=== PATIENT | female | born 1990 | race American Indian/Alaskan Native ===

== ENCOUNTER 2019-04-29 12:01 | Outpatient (CLI) | payer MEDICAID ==
[2019-04-29] MEDS ORDERED: ZOFRAN IV ONE (12:07)
[2019-04-29] MEDS ORDERED: LACTATED RINGERS 1,000 ML IV ONE (12:07)
[2019-04-29 12:57] LABS: Bilirubin,Urine NEG (Negative); Blood,Urine NEG (Negative); Color,Urine Yellow (Yellow); Mucus,Urine FEW /HPF; Protein,Urine <15 mg/dL mg/dL (Negative)
[2019-04-29 13:46] LABS: Hematocrit 36.5 % (30.3-42.9); Hemoglobin 12.2 gm/dl (10.1-14.3); Mean Corpuscular HGB Conc 33 % (30-34); Mean Corpuscular Volume 90 fl (79-97); Platelet Count 335 K/mm3 (140-440); Red Blood Count 4.06 M/mm3 (3.65-5.03); Red Cell Distribution Width 13.9 % (13.2-15.2)
[2019-04-29] MEDS ORDERED: LACTATED RINGERS 1,000 ML IV SCH (14:00)
[2019-04-29] MEDS ORDERED: TYLENOL PO ONE (15:38)
[2019-04-29 16:06] VITALS: BP 109/57
--- NOTE | 2019-04-29 18:11 | Ultrasound Report ---
PROCEDURE: US ABDOMEN LIMITED TECHNIQUE: Real-time sonography was performed of the right upper quadrant with image documentation. HISTORY: h/o gallbladder disease; N V COMPARISONS: None . FINDINGS: Examination of the gallbladder demonstrates multiple echogenic shadowing gallstones filling a contrac blayne gallbladder there is no evidence for distention, wall thickening, or pericholecystic fluid. No so nographic Colon's sign is elicited. Common bile duct is normal in diameter measuring 4.4 mm. The liver is normal and homogeneous in echogenicity without focal abnormality or intrahepatic biliary dilatation. The pancreas is normal in thickness without focal abnormality or pancreatic duct dilatation. The dist al pancreatic tail is not visualized due to bowel gas. The right kidney is normal in size without calculi or hydronephrosis. The right measures 10.6 cm in craniocaudal length. IMPRESSION: Contracted gallbladder filled with gallstones This document is electronically signed by Fanta Graham MD., April 29 2019 06:09:31 PM ET
--- NOTE | 2019-04-29 18:14 | Ultrasound Report ---
PROCEDURE: US OB LIMITED TECHNIQUE: Real-time limited sonographic examination was performed for evaluation of each fetus with image documentation (1 or more fetuses). HISTORY: contractions; and h/o gallbladder disease with LMP 08/17/2018 and estimated age 36 we eks 3 days with EDC 05/24/2019 COMPARISONS: None FINDINGS: MATERNAL Uterus: Within normal limits Internal Os: closed FETUS IUP: Single living intrauterine Position: Cephalic Placental position: Anterior, without previa. Amniotic fluid volume: Normal, VIJAY 11.5 cm Heart rate and rhythm: 155 BPM, Regular IMPRESSION: 1. Single living intrauterine gestation at approximately 36 weeks 3 days 2. EDC by US 05/24/2019 This document is electronically signed by Fanta Graham MD., April 29 2019 06:12:27 PM ET
--- NOTE | 2019-04-29 18:14 | Ultrasound Report ---
PROCEDURE: US OB BPP WO NON-STRESS TECHNIQUE: Sonographic evaluation for breathing, movement, tone, and amniotic flui d volume was performed. HISTORY: contractions; and h/o gallbladder disease COMPARISONS: None . FINDINGS: FETUS Amniotic fluid volume Normal-score 2. At least one vertical pocket >2 cm or more in vertical axis . breathing: Normal-score 2 . movement: Normal-score 2 . tone: Normal-score 2 . Score: 8 of 8 . IMPRESSION: Normal biophysical profile . This document is electronically signed by Fanta Graham MD., April 29 2019 06:12:54 PM ET
== END 2019-04-29 17:40 | disposition home or self-care (01) ==
LOC: TRG 12:01
PROVIDERS: ATTEND Obstetrics & Gynecology
DX: O21.2 Late vomiting of pregnancy (principal); O26.893 Other specified pregnancy related conditions, third trimester; R42 Dizziness and giddiness; O62.9 Abnormality of forces of labor, unspecified; O99.613 Diseases of the digestive system complicating pregnancy, third trimester; K80.20 Calculus of gallbladder without cholecystitis without obstruction; Z3A.36 36 weeks gestation of pregnancy; Z87.891 Personal history of nicotine dependence
CPT/HCPCS: 36415; 59025; 76705; 76815; 76819; 81001; 82150; 83690; 85027; 96361; 96374; J2405; J7120; 96360

== ENCOUNTER 2019-05-17 08:34 | Inpatient (IN) | payer MEDICAID, OTHER ==
[2019-05-17] MEDS ORDERED: STADOL IV PRN (11:29)
[2019-05-17] MEDS ORDERED: BRETHINE SUB-Q PRN (11:29)
[2019-05-17] MEDS ORDERED: MINERAL OIL PO PRN (11:29)
[2019-05-17] MEDS ORDERED: NARCAN 0.4 MG/1 ML IV PRN (11:29)
[2019-05-17] MEDS ORDERED: ZOFRAN IV PRN (11:29)
[2019-05-17] MEDS ORDERED: CERVIDIL VG ONE (11:29)
[2019-05-17] MEDS ORDERED: BRETHINE IVP PRN (11:29)
[2019-05-17] MEDS ORDERED: SUBLIMAZE IV PRN (11:29)
[2019-05-17] MEDS ORDERED: PHENERGAN PO PRN (11:29)
[2019-05-17] MEDS ORDERED: XYLOCAINE 2% INFILTRATI ONE (11:29)
--- NOTE | 2019-05-17 11:48 | History and Physical Report ---
History of Present Illness Date of examination: 05/17/19 Date of admission: 05/17/19 08:34 Chief complaint: IOL for obesity History of present illness: This is a 28 yo EDC 05/24/19 at 39 weeks here for IOL for obesity recommneded by CLAUDINE. She is patient of [facility] [facility]. She has a hx of goiter , hypothyroidism seen by endocrinology with normal US and TSH. She has a hx of gallstones and scheduled PP cholecytectomy, morbid obesity Past History Past Medical History: no pertinent history, other (thyroid ) Past Surgical History: other (tonsillectomy) Family/Genetic History: heart disease Social history: single. denies: smoking, alcohol abuse, prescription drug abuse, IV drug use - Obstetrical History Expected Date of Delivery: 05/24/19 Actual Gestation: 39 Week(s) 0 Day(s) : 5 Para: 3 Hx # Term Pregnancies: 0 Number of Pregnancies: 0 Spontaneous Abortions: 0 Induced : 0 Number of Living Children: 3 Medications and Allergies Allergies Allergy/AdvReac Type Severity Reaction Status Date / Time No Known Allergies Allergy Verified 04/29/19 12:04 Home Medications Medication Instructions Recorded Confirmed Last Taken Type Vit-Fe Fumar-FA [ 1 tab PO QDAY 04/29/19 04/29/19 04/28/19 09:00 History Vitamin] 1 Active Meds: Active Medications Butorphanol Tartrate (Stadol) 2 mg IV Q2H PRN PRN Reason: Pain , Severe (7-10) Ephedrine Sulfate (Ephedrine Sulfate) 10 mg IV Q2M PRN PRN Reason: Hypotension Fentanyl (Sublimaze) 100 mcg IV Q2H PRN PRN Reason: Labor Pain Oxytocin/Sodium Chloride (Pitocin/Ns 20 Unit/1000ml Drip) 20 units in 1,000 mls @ 125 mls/hr IV DIRECT JOSEPH Oxytocin/Sodium Chloride (Pitocin/Ns 30 Unit/500ml) 30 units in 500 mls @ 1 mls/hr IV TITR JOSEPH; Protocol Lactated Ringer's (Lactated Ringers) 1,000 mls @ 125 mls/hr IV DIRECT JOSEPH Mineral Oil (Mineral Oil) 30 ml PO QHS PRN PRN Reason: Constipation Naloxone HCl (Narcan 0.4 Mg/1 Ml) 0.1 mg IV Q2MIN PRN PRN Reason: Res Rate </= 8 or 02 SAT < 92% Ondansetron HCl (Zofran) 4 mg IV Q8H PRN PRN Reason: Nausea And Vomiting Promethazine HCl (Phenergan) 25 mg PO Q6H PRN PRN Reason: Nausea And Vomiting Terbutaline Sulfate (Brethine) 0.25 mg SUB-Q ONCE PRN PRN Reason: Hyperstimulation/Hypertonicity Terbutaline Sulfate (Brethine) 0.25 mg IVP ONCE PRN PRN Reason: Hyperstimulation/Hypertonicity Review of Systems All systems: negative - Vital Signs Vital signs: Vital Signs Pulse BP 95 H 133/62 05/17/19 09:43 05/17/19 09:43 Temp Pulse Resp BP Pulse Ox 97.6 F 95 H 16 133/62 05/17/19 11:04 05/17/19 11:04 05/17/19 11:04 05/17/19 11:04 - Physical Exam Breasts: Positive: normal Abdomen: Positive: normal appearance, soft, normal bowel sounds. Negative: distention, tenderness, guarding Genitourinary (Female): Positive: normal external genitalia, normal perenium Vagina: Positive: normal moisture Uterus: Positive: normal size Extremities: Positive: normal Deep Tendon Reflex Grade: Normal +2 - Obstetrical FHR: category 1 Cervical Dilatation: 1 Cervical Effacement Percentage: 50 station: -4 Results All other labs normal. Assessment and Plan A/P IOL for obeisty at 39 weeks IUP 39 weeks GBS negative expect vaginal delivery
[2019-05-17] MEDS ORDERED: PITOCin/NS 20 UNIT/1000ML DRIP 20 UNITS/1,000 ML BAG IV SCH (12:00)
[2019-05-17] MEDS ORDERED: PITOCin/NS 30 UNIT/500ML 30 UNITS/500 ML BAG IV SCH (12:00)
[2019-05-17 12:57] LABS: Hemoglobin 11.4 gm/dl (10.1-14.3); Mean Corpuscular HGB Conc 34 % (30-34); Mean Corpuscular Volume 90 fl (79-97); Platelet Count 359 K/mm3 (140-440)
[2019-05-17] MEDS: LACTATED RINGERS 1,000 ML IV SCH (16:11)
[2019-05-18] MEDS: LACTATED RINGERS 1,000 ML IV SCH (00:09)
[2019-05-18] MEDS ORDERED: ZOFRAN IV PRN (03:08)
[2019-05-18] MEDS ORDERED: PERCOCET 5/325 PO PRN (03:08)
[2019-05-18] MEDS ORDERED: BENADRYL PO PRN (03:08)
[2019-05-18] MEDS ORDERED: LANSINOH TP PRN (03:08)
[2019-05-18] MEDS ORDERED: DULCOLAX PR PRN (03:08)
[2019-05-18] MEDS ORDERED: TUCKS PAD TP PRN (03:08)
[2019-05-18] MEDS ORDERED: PHENERGAN PO PRN (03:08)
[2019-05-18] MEDS ORDERED: TYLENOL PO PRN (03:08)
[2019-05-18] MEDS ORDERED: PHENERGAN PR PRN (03:08)
[2019-05-18] MEDS ORDERED: MILK OF MAGNESIA PO PRN (03:08)
[2019-05-18] MEDS ORDERED: TORADOL IV PRN (03:08)
--- NOTE | 2019-05-18 03:18 | Procedure Note ---
OB Delivery Note - Delivery Date of Delivery: 05/18/19 Surgeon: KARTHIK RUVALCABA Estimated blood loss: 300cc - Vaginal Delivery presentation: vertex Delivery position: OA Delivery induction: cervidil Delivery monitor: external FHT, external uterine Route of delivery: Delivery placenta: spontaneous Delivery cord: 3 umbilical vessels Episiotomy: none Delivery laceration: none Anesthesia: none Delivery comments: Patient was noted c/c /+2 and commenced to pushing a viable male at 0257 . Pediatrics called and attended delivery for meconium. Apgars 8 and 9. Weight of the baby 7 pounds 2.5 oz Placenta delivered 0306 intact with three vessel cord. No lacerations noted. EBL 200 cc. Patient tolerated procedure well. - A at 1 minute: 8 at 5 minutes: 9 Gender: Male (7 pounds 2.5 oz)
[2019-05-18] MEDS ORDERED: PITOCin/NS 20 UNIT/1000ML DRIP 20 UNITS/1,000 ML BAG IV SCH (04:00)
[2019-05-18] MEDS ORDERED: SODIUM CHLORIDE FLUSH SYRINGE 10 ML IV PRN (04:00)
[2019-05-18] MEDS: IBUPROFEN PO SCH ×3 (04:16→17:57)
[2019-05-18] MEDS: NORCO 5/325 PO PRN ×2 (05:55→17:57)
[2019-05-18] MEDS: COLACE PO SCH (11:32)
[2019-05-18] MEDS: PRENATAL VITAMIN PO SCH (11:32)
[2019-05-18 15:53] LABS: Hematocrit 33.8 % (30.3-42.9); Hemoglobin 11.3 gm/dl (10.1-14.3)
[2019-05-19] MEDS: NORCO 5/325 PO PRN (00:23)
[2019-05-19] MEDS: IBUPROFEN PO SCH ×6 (00:23→18:30)
[2019-05-19] MEDS ORDERED: M-M-R II VACCINE SUB-Q ONE (03:08)
[2019-05-19] MEDS ORDERED: BOOSTRIX IM ONE (06:00)
--- NOTE | 2019-05-19 08:30 | Progress Note ---
Assessment and Plan A/P PPD1 s/p , breast feeding well. Vital signs are stable, no anemia. Ok for discharge to home tomorrow. Follow up in 2 weeks for 's circ and pt's surgical consult. Pt will follow up with GI specialist Subjective - Subjective Date of service: 05/19/19 Principal diagnosis: Interval history: Pt is a PPD1 s/p of viable male infant at term. Her EBL was 200mL, and she did not sustain a laceration. She has a history of cholecystitis and desires a bilateral salpingectomy . Patient reports: appetite normal, voiding normally, pain well controlled, ambulating normally : doing well, nursing well Objective - Vital Signs Latest vital signs: Vital Signs Temp Pulse Resp BP Pulse Ox 05/19/19 00:54 97.9 F 73 20 115/66 97 05/18/19 16:56 98.4 F 77 20 114/61 05/18/19 08:50 97.7 F 68 20 109/65 Intake and Output 05/18/19 05/19/19 05/19/19 23:59 07:59 15:59 Intake Total 360 480 Output Total 900 Balance -540 480 Intake: Oral 360 Intake, Free Water 480 Output: Urine 900 Void 900 Other: Total, Intake Amount 360 Total, Output Amount 900 # Voids Void 2 - Exam Breasts: Present: normal Cardiovascular: Present: Regular rate, Normal S1, Normal S2, No murmurs Lungs: Present: Clear to auscultation, Normal air movement Abdomen: Present: normal appearance, soft Uterus: Present: normal, firm, fundal height at umbilicus Extremities: Present: normal
--- NOTE | 2019-05-19 08:32 | Discharge Summary ---
Providers - Providers Date of Admission: 05/17/19 08:34 Date of discharge: 05/20/19 Attending physician: KARTHIK RUVALCABA MD Primary care physician: KARTHIK RUVALCABA MD Hospitalization Reason for admission: induction of labor Delivery: Episiotomy: none Laceration: none Other procedures: none complications: none Discharge diagnosis: IUP at term delivered baby: male Condition at discharge: Good Disposition: DC-01 TO HOME OR SELFCARE Plan - Discharge Medications Prescriptions: Ferrous Sulfate [Feosol 325 MG tab] 325 mg PO BID #30 tablet Ibuprofen [Motrin] 600 mg PO Q8H PRN #30 tablet PRN Reason: Pain oxyCODONE /ACETAMINOPHEN [Percocet 5/325] 1 tab PO Q6HR PRN #30 tablet PRN Reason: Pain - Provider Discharge Summary Activity: routine, no sex for 6 weeks, no heavy lifting 4 weeks, no strenuous exercise Diet: routine Instructions: routine Additional instructions: [] Smoking cessation referral if applicable(refer to patient education folder for contact #) [] Refer to [facility]'s [facility] Booklet Call your doctor immediately for: * Fever > 100.5 * Heavy vaginal bleeding ( >1 pad per hour) * Severe persistent headache * Shortness of breath * Reddened, hot, painful area to leg or breast * Drainage or odor from incision. * Keep incision clean and dry at all times and follow doctor's instructions regarding bathing/showering - Follow up plan Follow up: KARTHIK RUVALCABA MD [Primary Care Provider] - 10 Days (Please call to schedule appointment)
[2019-05-19] MEDS: PRENATAL VITAMIN PO SCH (09:23)
[2019-05-19] MEDS: COLACE PO SCH ×2 (09:24→21:27)
[2019-05-20] MEDS: IBUPROFEN PO SCH (06:03)
[2019-05-20] MEDS: NORCO 5/325 PO PRN (08:22)
[2019-05-20] MEDS: PRENATAL VITAMIN PO SCH (09:46)
[2019-05-20] MEDS: COLACE PO SCH (09:49)
[2019-05-20 10:10] VITALS: BP 100/64
== END 2019-05-20 12:00 | disposition home or self-care (01) | DRG 807 ==
LOC: LD 08:34 → OB 05-18 05:06
PROVIDERS: ADMIT Obstetrics & Gynecology; ATTEND Obstetrics & Gynecology
PROC: 10E0XZZ Delivery of Products of Conception, External Approach (ICD-10-PCS; principal; 2019-05-18)
PROC: 3E0P7VZ Introduction of Hormone into Female Reproductive, Via Natural or Artificial Opening (ICD-10-PCS; 2019-05-18)
PROC: 3E0234Z Introduction of Serum, Toxoid and Vaccine into Muscle, Percutaneous Approach (ICD-10-PCS; 2019-05-19)
DX: O99.284 Endocrine, nutritional and metabolic diseases complicating childbirth (principal); Z37.0 Single live birth; O99.214 Obesity complicating childbirth; E66.01 Morbid (severe) obesity due to excess calories; E03.9 Hypothyroidism, unspecified; Z3A.39 39 weeks gestation of pregnancy; Z23 Encounter for immunization
CPT/HCPCS: 36415; 59200; 85014; 85018; 85027; 86592; 86850; 86900; 86901; G0378; J0595; J2405; J2590; J3010; J7120

== ENCOUNTER 2020-07-15 20:08 | Outpatient (CLI) | payer MEDICAID ==
[2020-07-15 20:23] VITALS: BP 121/86
[2020-07-15] MEDS ORDERED: MORPHINE 4 MG/1 ML INJ IV ONE (20:42)
[2020-07-15] MEDS ORDERED: LACTATED RINGERS 1,000 ML IV ONE (20:42)
[2020-07-15] MEDS ORDERED: BICITRA ORAL LIQD 30ML PO ONE (20:42)
[2020-07-15] MEDS ORDERED: METOCLOPRAMIDE 10 MG/2 ML INJ IV ONE (20:42)
[2020-07-15] MEDS ORDERED: PROMETHAZINE 25 MG TAB PO ONE (20:43)
[2020-07-15 21:04] LABS: Basophils % (Auto) 0.4 % (0.0-1.8); Eosinophils # (Auto) 0.1 K/mm3 (0.0-0.4); Eosinophils % (Auto) 1.4 % (0.0-4.3); Hemoglobin 11.7 gm/dl (10.1-14.3); Lymphocytes # (Auto) 2.7 K/mm3 (1.2-5.4); Lymphocytes % (Auto) 28.8 % (13.4-35.0); Mean Corpuscular HGB Conc 35 % (30-34); Mean Corpuscular Volume 89 fl (79-97); Monocytes # (Auto) 0.6 K/mm3 (0.0-0.8); Platelet Count 374 K/mm3 (140-440); Red Blood Count 3.83 M/mm3 (3.65-5.03); Red Cell Distribution Width 14.3 % (13.2-15.2)
[2020-07-15 21:30] LABS: Alanine Aminotransferase 21 units/L (7-56); Albumin 3.3 g/dL (3.9-5); Blood Urea Nitrogen 5 mg/dL (7-17); Calcium 9.1 mg/dL (8.4-10.2); Hemolysis Index 60
[2020-07-15 21:40] LABS: BUN/Creatinine Ratio 10
== END 2020-07-15 21:45 | disposition left against medical advice (07) ==
LOC: TRG 20:08 → APU 20:16 → TRG 21:45
PROVIDERS: ATTEND Obstetrics & Gynecology
DX: O26.892 Other specified pregnancy related conditions, second trimester (principal); R10.11 Right upper quadrant pain; K82.9 Disease of gallbladder, unspecified; O13.2 Gestational [pregnancy-induced] hypertension without significant proteinuria, second trimester; Z3A.20 20 weeks gestation of pregnancy
CPT/HCPCS: 36415; 59025; 80053; 85025; 96361; 96374; J2765; J7120; Q0169; 96360; J2270

== ENCOUNTER 2020-07-17 21:23 | Emergency (ER) | payer MEDICAID ==
[2020-07-18 15:32] VITALS: BP 115/66
== END 2020-07-18 00:40 | disposition left against medical advice (07) ==
LOC: TRG 21:23 → ED 21:23 → APU 21:24 → TRG 21:24 → EDSTATUS 22:26 → ED 07-18 00:40
DX: R10.9 Unspecified abdominal pain (principal); Z53.21 Procedure and treatment not carried out due to patient leaving prior to being seen by health care provider

== ENCOUNTER 2020-11-23 20:39 | Inpatient (IN) | payer MEDICAID ==
[2020-11-23] MEDS ORDERED: LIDOCAINE (2%) 20 MG/1 ML VIAL 20 ML MDV INFILTRATI ONE (21:27)
[2020-11-23] MEDS ORDERED: MINERAL OIL 30 ML ORAL LIQD PO PRN (21:27)
[2020-11-23] MEDS ORDERED: ePHEDrine SULFATE 50 MG/1 ML INJ IV PRN (21:27)
[2020-11-23] MEDS ORDERED: TERBUTALINE 1 MG/1 ML INJ SUB-Q PRN (21:27)
--- NOTE | 2020-11-23 21:47 | History and Physical Report ---
History of Present Illness Date of examination: 11/23/20 Date of admission: 11/23/20 20:39 Chief complaint: Here for scheduled induction of labor. History of present illness: 30 year old presents for scheduled induction of labor due to obesity. Patient received care at [facility] and records are available. Patient also saw [facility] during her . LMP 01/18/2020. EDC 11/30/2020. significant for the following: gallstones (has plan for cholecystectomy), LGA, obesity, preeclampsia with previous . labs are as follows: O+, antibody screen negative, rubella immune, hepatitis B surface antigen negative, HIV negative, RPR nonreactive, HSV 2 positive, varicella immune, gonorrhea negative, chlamydia negative, trichomonas negative, 1 hour sugar test 118 (repeat of 94), GBS negative. Past History Past Medical History: other (obesity, history of preeclampsia with a previous , gallstones during ) Past Surgical History: tonsillectomy, other (bladder surgery 2019) [facility] History: herpes (+ HSV 2 serology (denies lesions or prodromal symptoms)). denies: abnormal PAP smear, chlamydia, gonorrhea, hepatitis B, hepatitis C, HIV, syphilis, trichomonas Family/Genetic History: hypertension Social history: single, full code. denies: smoking, alcohol abuse, prescription drug abuse, IV drug use - Obstetrical History Expected Date of Delivery: 11/30/20 Actual Gestation: 39 Week(s) 0 Day(s) : 6 Para: 4 Hx # Term Pregnancies: 4 Number of Pregnancies: 0 Spontaneous Abortions: 1 (SAB at 19 weeks gestation) Induced : 0 Number of Living Children: 4 Medications and Allergies Allergies Allergy/AdvReac Type Severity Reaction Status Date / Time No Known Allergies Allergy Verified 04/29/19 12:04 Home Medications Medication Instructions Recorded Confirmed Last Taken Type Vit-Fe Fumar-FA [ 1 tab PO QDAY 04/29/19 05/18/19 2 Days Ago History Vitamin] ~05/16/19 Ferrous Sulfate [Feosol 325 MG tab] 325 mg PO BID #30 tablet 05/18/19 Unknown Rx Ibuprofen [Motrin] 600 mg PO Q8H PRN #30 tablet 05/18/19 Unknown Rx oxyCODONE /ACETAMINOPHEN [Percocet 1 tab PO Q6HR PRN #30 tablet 05/18/19 Unknown Rx 5/325] Active Meds: Active Medications Ephedrine Sulfate (Ephedrine Sulfate 50 Mg/1 Ml Inj) 10 mg IV Q2M PRN PRN Reason: Hypotension Fentanyl (Fentanyl 100 Mcg/2 Ml Inj) 100 mcg IV Q2H PRN PRN Reason: Pain,Severe (7-10) LABOR PAIN Oxytocin/Sodium Chloride (Pitocin/Ns 30 Unit/500ml) 30 units in 500 mls @ 2 mls/hr IV TITR JOSEPH; Protocol Lactated Ringer's (Lactated Ringers) 1,000 mls @ 125 mls/hr IV DIRECT JOSEPH Oxytocin/Sodium Chloride (Pitocin/Ns 30 Unit/500ml) 30 units in 500 mls @ 40 mls/hr IV TITR JOSEPH; Protocol Lidocaine (Lidocaine (2%) 20 Mg/1 Ml Vial 20 Ml Mdv) 20 ml INFILTRATI ONCE ONE Stop: 11/23/20 21:28 Mineral Oil (Mineral Oil 30 Ml Oral Liqd) 30 ml PO QHS PRN PRN Reason: Constipation Terbutaline Sulfate (Terbutaline 1 Mg/1 Ml Inj) 0.25 mg SUB-Q ONCE PRN PRN Reason: Hyperstimulation/Hypertonicity Review of Systems All systems: negative (occasional contractions) - Vital Signs Vital signs: Vital Signs Pulse Pulse Ox 116 H 99 11/23/20 21:04 11/23/20 21:04 Temp Pulse Resp BP Pulse Ox 98.5 F 107 H 102/63 99 11/23/20 21:15 11/23/20 21:29 11/23/20 21:06 11/23/20 21:29 - Physical Exam Abdomen: Positive: normal appearance, soft. Negative: distention, tenderness, guarding, rigidity Genitourinary (Female): Positive: normal external genitalia, normal perenium. Negative: perineal/vulvar lesions Vagina: Positive: normal moisture Uterus: Positive: enlarged. Negative: tender Anus/Rectum: Positive: normal perianal skin Extremities: Positive: normal. Negative: tenderness, edema - Obstetrical FHR: category 1 Uterine Contraction Monitor Mode: External Cervical Dilatation: 2 Cervical Effacement Percentage: 50 station: -4 Uterine Contraction Pattern: Irregular Uterine Contraction Intensity: Mild Results All other labs normal. Assessment and Plan A: at 39 weeks gestation. Class 3 obesity. HSV 2 positive. P: Admit. Continuous EFM. Continue Valtrex for HSV suppression. Pitocin for cervical ripening and IOL. Discussed with patient risks and benefits of Pitocin induction of labor. Patient consented to Pitocin induction of labor.
[2020-11-23] MEDS ORDERED: OXYTOCIN DRIP 30 UNITS/500 ML BAG IV SCH (22:00)
[2020-11-23] MEDS: OXYTOCIN DRIP 30 UNITS/500 ML BAG IV SCH (23:26)
[2020-11-23] MEDS: LACTATED RINGERS 1,000 ML IV SCH (23:26)
[2020-11-23] MEDS ORDERED: miSOPROStol 200 MCG TAB ONE (23:30)
[2020-11-23] MEDS ORDERED: CARBOPROST TROMETHAMINE 250 MCG/1 ML INJ IM ONE (23:30)
[2020-11-23] MEDS ORDERED: DIPHENOXYLATE/ATROPINE TAB ONE (23:31)
[2020-11-23 23:39] LABS: Hematocrit 28.7 % (30.3-42.9); Hemoglobin 10.3 gm/dl (10.1-14.3); Mean Corpuscular HGB Conc 36 % (30-34); Mean Corpuscular Volume 87 fl (79-97); Platelet Count 447 K/mm3 (140-440); Red Blood Count 3.31 M/mm3 (3.65-5.03); Red Cell Distribution Width 13.8 % (13.2-15.2)
[2020-11-24] MEDS: valACYclovir 500 MG TAB PO SCH ×3 (01:17→21:58)
--- NOTE | 2020-11-24 06:52 | Event Note ---
Date: 11/24/20 SVE /-2/BBOW. Category 1 FHR tracing. Informed nurse to increase Pitocin per protocol.
[2020-11-24] MEDS: LACTATED RINGERS 1,000 ML IV SCH ×2 (07:22→16:26)
[2020-11-24] MEDS: fentaNYL 100 MCG/2 ML INJ IV PRN (11:04)
--- NOTE | 2020-11-24 14:33 | Event Note ---
Date: 11/24/20 SVE /-2. Patient requests to be able to eat. Pitocin turned off. When contractions space out or resolve, will allow light meal times 1.
[2020-11-24] MEDS: OXYTOCIN DRIP 30 UNITS/500 ML BAG IV SCH (16:24)
--- NOTE | 2020-11-24 18:03 | Event Note ---
Date: 11/24/20 SVE /-4.
[2020-11-25] MEDS: fentaNYL 100 MCG/2 ML INJ IV PRN ×2 (01:15→04:43)
--- NOTE | 2020-11-25 06:48 | Event Note ---
Date: 11/25/20 SVE: /- ballottable; no change. presentation has changed; small parts now felt upon SVE. Pitocin discontinued; ultrasound ordered. notified.
[2020-11-25] MEDS ORDERED: BICITRA ORAL LIQD 30ML PO ONE (07:39)
[2020-11-25] MEDS ORDERED: FAMOTIDINE 20 MG/2 ML INJ IV ONE (07:39)
[2020-11-25] MEDS ORDERED: METOCLOPRAMIDE 10 MG/2 ML INJ IV ONE (07:39)
[2020-11-25] MEDS ORDERED: ceFAZolin/Water 2 GM/20 ML 0 GM/0 ML SYRINGE IV ONE (07:44)
[2020-11-25] MEDS ORDERED: LACTATED RINGERS 1,000 ML IV SCH (07:45)
--- NOTE | 2020-11-25 07:45 | Anesthesia Day of Surgery ---
Anesthesia Day of Surgery - Day of Surgery Patient Examined: Yes Patient H&P Reviewed: Yes Patient is NPO: Yes
--- NOTE | 2020-11-25 07:45 | Anesthesia Consultation ---
Anesthesia Consult and Med Hx Date of service: 11/25/20 - Airway Anesthetic Teeth Evaluation: Good ROM Head & Neck: Adequate Mental/Hyoid Distance: Adequate Mallampati Class: Class II Intubation Access Assessment: Probably Good - Pulmonary Exam CTA: Yes - Cardiac Exam Cardiac Exam: RRR - Pre-Operative Health Status ASA Pre-Surgery Classification: ASA3 Proposed Anesthetic Plan: Spinal - Pulmonary Hx Smoking: No Hx Asthma: No COPD: No Hx Pneumonia: No Hx Sleep Apnea: No - Cardiovascular System Hx Hypertension: No - Central Nervous System Hx Seizures: No CVA: No Hx Psychiatric Problems: No - Gastrointestinal Hx Ulcer: No - Endocrine Hx Renal Disease: No Hx End Stage Renal Disease: No Hx Cirrhosis: No Hx Liver Disease: No Hx Hypothyroidism: No Hx Hyperthyroidism: No - Hematic Hx Anemia: No Hx Sickle Cell Disease: No - Other Systems Hx Alcohol Use: No Hx Cancer: No Hx Obesity: Yes
[2020-11-25] MEDS ORDERED: ceFAZolin/Water 2 GM/20 ML 2 GM/20 ML SYRINGE IV NR (08:00)
--- NOTE | 2020-11-25 08:04 | Ultrasound Report ---
ULTRASOUND OBSTETRIC LIMITED INDICATION / CLINICAL INFORMATION: presentation. Clinical Gestational Age (GA): 37 weeks. 1 days COMPARISON: 04/29/2019 FINDINGS: HEART RATE (beats per minute): 140 PRESENTATION: Breech. ADDITIONAL FINDINGS: None. IMPRESSION: 1. Breech presentation. Signer Name: Serafin Escamilla MD Signed: 11/25/2020 8:00 AM Workstation Name: [id number]
[2020-11-25] MEDS ORDERED: SODIUM CHLORIDE 0.9% IRR 1,500 ML BOTTLE IR ONE (09:56)
[2020-11-25] MEDS ORDERED: WATER FOR IRRIG STERILE 1,500 ML BOTTLE IR ONE (09:56)
[2020-11-25] MEDS ORDERED: miSOPROStol 200 MCG TAB PR ONE (10:00)
[2020-11-25] MEDS ORDERED: miSOPROStol 200 MCG TAB ONE (10:02)
[2020-11-25] MEDS ORDERED: dexAMETHasone 20 MG/5 ML VIAL ONE (10:18)
[2020-11-25] MEDS ORDERED: ONDANSETRON 4 MG/2 ML INJ ONE (10:18)
[2020-11-25] MEDS ORDERED: OXYTOCIN 10 UNIT/1 ML INJ ONE (10:18)
[2020-11-25] MEDS ORDERED: BUPIVACAINE/PF (0.5%) 5 MG/1 ML 30 ML VIAL INFILTRATI ONE (10:19)
[2020-11-25] MEDS ORDERED: KETOROLAC 30 MG/1 ML INJ ONE (10:19)
[2020-11-25] MEDS ORDERED: ePHEDrine SULFATE 50 MG/1 ML INJ ONE (10:19)
[2020-11-25] MEDS ORDERED: PHENYLEPHRINE/NS 1,000 MCG/10 ML SYRINGE (OR USE) IV ONE (10:20)
[2020-11-25] MEDS ORDERED: SODIUM CHLORIDE 0.9% 100 ML ONE (10:24)
[2020-11-25 10:43] LABS: ABG Base Excess -11.4 mmol/L (-2.0-3.0); ABG HCO3 21.6 mmol/L (20.0-26.0); ABG Methemoglobin 1.1 % (0.0-1.5); ABG Oxygen Saturation 4.9 % (95.0-99.0); ABG PCO2 89.4 mm Hg
[2020-11-25 10:45] LABS: ABG PH 7.002 pH Units (7.350-7.450); ABG PO2 6.2 mm Hg (80.0-90.0)
[2020-11-25] MEDS ORDERED: LACTATED RINGERS 1,000 ML ONE (10:51)
[2020-11-25] MEDS ORDERED: fentaNYL 100 MCG/2 ML INJ ONE (11:24)
--- NOTE | 2020-11-25 12:10 | Progress Note ---
Regional Anesthesia Block - Regional Anesthesia Block Start Time: 12:00 Stop Time: 12:05 Performed By:: BARBIE HERNANDEZ Procedure: U/S guided bilateral tap block performed for post-operative pain requested by Dr. Dixon. H&P & labs reviewed. Procedure explained, questions answered, consent obtained. Patient in the supine position with ekg, blood pressure cuff and pulse ox on and working in PACU. Timeout performed immediately before start of procedure. Probe placed in the mid-axillary line and the external oblique, internal oblique, and transverse abdominus muscles identified. Skin was cleansed with 0.5% Chlorahexadine and allowed to dry. A 4" 20 G Vásquez echogenic needle was advanced in plane until the tip was in the fascial plane between the internal oblique and the transverse abdominus. After negative aspiration 35 ml/side of [30 ml 0.5% Bupivacaine], [50 mcg dexmedetomidine], [10 mg dexamethasone], and [40 ml sterile saline] was injected in 5 ml increments with negative aspiration in between. Patient tolerated procedure well. Bob LEONARD
--- NOTE | 2020-11-25 12:46 | Procedure Note ---
OB Delivery Note - Delivery Date of Delivery: 11/25/20 Surgeon: EDIE DIXON (Asst hvac service technician Annel Reynolds) Estimated blood loss: other (700cc) - Section Preop diagnosis: desires sterilization, breech, other (Unstable lie, vertex on admission) Postop diagnosis: other (Meconium stained fluid) section procedure: other (primary Inverted "T" section, from extension upwards of transverse incision) Disposition: floor Complications: none Narrative: Primary section and bilateral tubal steri Date: 11/25/20 Surgeon: Edie Dixon MD with astro technician assist Preop Dx: Term , breech presentation now, unstable lie; Polyhydramnios; Multiparous, desires permanent sterilization, Morbid Obesity Postop Dx: same Procedure : Primary classical Inverted "T" section, from conversion of transverse incision initially and bilateral salpingectomy Anesthesia: Spinal Intake: 1500cc Output: 30cc with less when olvera catheter inserted and very concentrated EBL: 700cc After the risks, benefits and alternatives of procedure discussed, patient signed consents and was taken to the operating room. Pt was given spinal anesthesia. After same was adequate, patient was prepped and draped in the usual sterile fashion. Olvera catheter in place and draining very scant concentrated urine about 15cc when catheter placed by mi. Pt was given prophylactic antibiotic per protocol and time out was done Pfannenstiel skin incision was made and taken sharply to the fascia and the incision extended using electrocautery. Superior edge of the fascia was grasped with estela clamps and the rectus muscle using blunt dissection and also using electrocautery. Lower portion of the fascia also sharply. Rectus muscle in the midline and Peritoneal cavity entered bluntly and extended with good visualization of the bladder. Ángel retractor placed without difficulty. The bladder flap was created sharply using metzenbaum scissors. Lower uterine segment then entered transversely and meconium stained amniotic sac entered using allys clamps. Uterine incision extended using bandage scissors. was noted to be single footling breech to left and with exam right leg completely extended and therefore right knee flexed, followed by the r ight arm then left arm; Head entrapment noted therefore uterine incision extended upwards and nuchal cords x2 reduced to deliver head. Infant delivered, bulb suctioned, cord clamped and baby handed to waiting pediatricians. Placenta then delivered completely and uterine cavity cleared of all clots and debri. The uterus was not exteriorized and extension upwards repaired in 2 layers then then transversely closed in 2 layers using 0-vicryl suture in a running locked fashion and then an additional layer of imbrication suture. Excellent hemostasis noted. The gutters were cleared of clots and debri. Attention turned to left fallopian tube and same followed out the fimbriated end. Avascular portion of mesosalpinx entered using electrocautery and the distal portion of the left tube transected and remaining free ends doubly ligated using 0-vicryl sutures. Attention turned to the right fallopian tube which in a similar was removed including the fimbriae. Excellent hemostasis re arthur. Copious irrigation done to the pelvis done with normal saline and the ángel retractor removed. The anterior peritoneum closed using 3-0 vicryl suture and rectus muscle reapproximated using o-vicryl suture interrupted and hemostasis remains. Rectus fascia closed with 0-vicryl suture in a continous fashion from left towards the right and subcutaneous tissue copiously irrigated with normal saline and re-approximated using 3-0 vicryl suture continuously. Excellent hemostasis remains. The skin was closed with 4-0 monocryl suture the only available in the OR and steristrips placed by me then pressure dressing by my real estate legal assistant. Sponge, lap, instrument and needle counts x2 were normal. Patient tolerated the procedure well and was taken to recovery room stable. Findings: Viable female , APGARS 6/8 and weight 3410g. Meconium stained large amount of fluid. Normal uterus, tubes and ovaries. - Infant A at 1 minute: 6 at 5 minutes: 8 Gender: Female (wt 3410g)
[2020-11-25] MEDS ORDERED: MAGNESIUM HYDROXIDE (MOM) ORAL LIQD UDC PO PRN (14:06)
[2020-11-25] MEDS ORDERED: WITCH HAZEL/ GLYCERIN PAD TP PRN (14:06)
[2020-11-25] MEDS ORDERED: NALOXONE 0.4 MG/1 ML INJ IV PRN (14:06)
[2020-11-25] MEDS ORDERED: SIMETHICONE 80 MG CHEW TAB PO PRN (14:06)
[2020-11-25] MEDS ORDERED: ONDANSETRON 4 MG/2 ML INJ IV PRN (14:06)
[2020-11-25] MEDS ORDERED: LANOLIN/ZINC/DIMETHICONE (LANSINOH) 7 GM TP PRN (14:06)
[2020-11-25] MEDS ORDERED: OXYTOCIN DRIP 30 UNITS/500 ML BAG IV SCH (14:06)
[2020-11-25] MEDS: MORPHINE 4 MG/1 ML INJ IV PRN ×2 (14:45→22:58)
[2020-11-25 16:56] LABS: Alanine Aminotransferase 13 units/L (7-56); Albumin 3.1 g/dL (3.9-5); BUN/Creatinine Ratio 20; Blood Urea Nitrogen 8 mg/dL (7-17); Calcium 8.9 mg/dL (8.4-10.2); Hemolysis Index 6
[2020-11-25] MEDS: oxyCODONE /ACETAMINOPHEN 5-325MG TAB PO PRN (18:10)
[2020-11-25] MEDS: valACYclovir 500 MG TAB PO SCH (21:08)
[2020-11-26] MEDS: oxyCODONE /ACETAMINOPHEN 5-325MG TAB PO PRN ×4 (05:11→23:13)
[2020-11-26] MEDS: IBUPROFEN 800 MG TAB PO PRN (08:25)
--- NOTE | 2020-11-26 09:32 | Post Anesthesia Evaluation ---
- Post Anesthesia Evaluation Patient Participated: Yes Airway Patent: Yes Stable Respiratory Function: Yes Nausea/Vomiting: No Temp > 96.8F: Yes Pain Manageable: Yes Adequeate Hydration: Yes Anesthesia Complications: No Block Receding Appropriately: Yes Patient on Ventilator: No
[2020-11-26 10:51] LABS: Basophils % (Auto) 0.1 % (0.0-1.8); Eosinophils % (Auto) 0.2 % (0.0-4.3); Hematocrit 27.8 % (30.3-42.9); Hemoglobin 9.4 gm/dl (10.1-14.3); Lymphocytes # (Auto) 2.4 K/mm3 (1.2-5.4); Lymphocytes % (Auto) 15.5 % (13.4-35.0); Mean Corpuscular HGB Conc 34 % (30-34); Mean Corpuscular Volume 88 fl (79-97); Monocytes % (Auto) 6.4 % (0.0-7.3); Platelet Count 417 K/mm3 (140-440); Red Blood Count 3.18 M/mm3 (3.65-5.03); Red Cell Distribution Width 13.5 % (13.2-15.2)
[2020-11-26] MEDS: FERROUS SULFATE 325 MG TAB PO SCH (13:24)
[2020-11-26] MEDS: PRENATAL VIT27-FE FUMARATE-FOLIC ACID VIT TAB PO SCH (13:24)
--- NOTE | 2020-11-26 18:38 | Progress Note ---
Assessment and Plan POD#1 C/Section with leucocytosis and pain not well controlled and dysuria 1. Send urinalysis and urine for culture, prefer straight cath if pt will allow 2. Increase percocet to 2tabs and consider dilaudid if same not effective and nurse notified 3. Routine care All questions encouraged and answered Subjective Date of service: 11/26/20 Principal diagnosis: Breech presentation at term, Unstable lie, s/p C/S; POD#1 Interval history: Pt c/o percocet only 1tab not effective, pt also states she feels discomfort when she voids. Denies N/V/F/C. Pt has tolerated regular diet and passed flatus. Vag bleeding less than a period. pt is breast feeding. Objective - Constitutional Vitals: Vital Signs - 12hr 11/26/20 08:47 Temperature 98.3 F Pulse Rate 88 Respiratory 20 Rate Blood Pressure 112/67 O2 Sat by Pulse 94 Oximetry General appearance: Present: no acute distress - Breasts Breasts: normal - Cardiovascular Rhythm: regular - Gastrointestinal General gastrointestinal: Present: soft, normal bowel sounds, other (Incision with dressing in place and when removed, steristrips C/D/I) Rectal Exam: deferred - Genitourinary Female genitourinary: other (Lochia dark red moderate amount) - Neurologic Neurologic: CNII-XII intact - Psychiatric Psychiatric: appropriate mood/affect - Labs CBC & Chem 7: 11/26/20 10:18 11/25/20 16:18 Labs: Abnormal lab results 11/26/20 Range/Units 10:18 WBC 15.8 H (4.5-11.0) K/mm3 RBC 3.18 L (3.65-5.03) M/mm3 Hgb 9.4 L (10.1-14.3) gm/dl Hct 27.8 L (30.3-42.9) % [place] # (Auto) 1.0 H (0.0-0.8) K/mm3 Seg Neutrophils % 77.8 H (40.0-70.0) % Seg Neutrophils # 12.3 H (1.8-7.7) K/mm3 Medications & Allergies - Medications Allergies/Adverse Reactions: Allergies No Known Allergies Allergy (Verified 04/29/19 12:04) Home Medications: Home Medications Medication Instructions Recorded Confirmed Last Taken Type Vit-Fe Fumar-FA [ 1 tab PO QDAY 04/29/19 11/23/20 11/22/20 History Vitamin] Ferrous Sulfate [Feosol 325 MG tab] 325 mg PO BID #30 tablet 05/18/19 11/23/20 Unknown Rx Ibuprofen [Motrin 600 MG tab] 600 mg PO Q8H PRN #30 tablet 05/18/19 11/23/20 Unknown Rx oxyCODONE /ACETAMINOPHEN [Percocet 1 tab PO Q6HR PRN #30 tablet 11/25/20 Unknown Rx 5/325 mg] Active Medications: Generic Name Dose Route Start Last Admin Trade Name Freq PRN Reason Stop Dose Admin Ephedrine Sulfate 10 mg 11/23/20 21:27 Ephedrine Sulfate 50 Mg/1 Ml Inj IV Q2M PRN Hypotension Fentanyl 100 mcg 11/23/20 21:27 11/25/20 04:43 Fentanyl 100 Mcg/2 Ml Inj IV 100 mcg Q2H PRN Administration Pain,Severe (7-10) LABOR PAIN Ferrous Sulfate 325 mg 11/26/20 10:00 11/26/20 13:24 Ferrous Sulfate 325 Mg Tab PO 325 mg QDAY JOSEPH Administration Oxytocin/Sodium Chloride 30 units in 500 mls @ 2 mls/hr 11/23/20 22:00 11/24/20 20:45 Pitocin/Ns 30 Unit/500ml IV 6 ml/hr TITR JOSEPH 6 mls/hr Titration Protocol Lactated Ringer's 1,000 mls @ 125 mls/hr 11/23/20 21:30 11/24/20 16:26 Lactated Ringers IV 125 mls/hr DIRECT JOSEPH Administration Oxytocin/Sodium Chloride 30 units in 500 mls @ 40 mls/hr 11/23/20 22:00 Pitocin/Ns 30 Unit/500ml IV TITR JOSEPH Protocol Oxytocin/Sodium Chloride 30 units in 500 mls @ 40 mls/hr 11/25/20 14:06 Pitocin/Ns 30 Unit/500ml IV TITR JOSEPH Protocol Ibuprofen 800 mg 11/25/20 14:06 11/26/20 08:25 Ibuprofen 800 Mg Tab PO 800 mg Q6H PRN Administration Pain, Mild (1-3) Magnesium Hydroxide 30 ml 11/25/20 14:06 Magnesium Hydroxide (Mom) Oral Liqd Udc PO QHS PRN Constip Unrelieved By Senna Mineral Oil 30 ml 11/23/20 21:27 Mineral Oil 30 Ml Oral Liqd PO QHS PRN Constipation Morphine Sulfate 4 mg 11/25/20 14:06 11/25/20 22:58 Morphine 4 Mg/1 Ml Inj IV 4 mg Q4H PRN Administration Pain , Severe (7-10) Multi-Ingredient Ointment 1 applic 11/25/20 14:06 Lanolin/Zinc/Dimethicone (Lansinoh) 7 Gm TP PRN PRN dryness/cracking Multivitamins/Iron/Calcium 1 each 11/26/20 10:00 11/26/20 13:24 [id number] Fumarate-Folic Acid Vit Tab PO 1 each QDAY JOSEPH Administration Naloxone HCl 0.1 mg 11/25/20 14:06 Naloxone 0.4 Mg/1 Ml Inj IV Q2MIN PRN Res Rate </= 8 or 02 SAT < 92% Ondansetron HCl 4 mg 11/25/20 14:06 Ondansetron 4 Mg/2 Ml Inj IV Q8H PRN Nausea And Vomiting Oxycodone/Acetaminophen 2 tab 11/26/20 15:56 11/26/20 16:22 Oxycodone /Acetaminophen 5-325mg Tab PO 1 tab Q6H PRN Administration Pain, Moderate (4-6) Simethicone 80 mg 11/25/20 14:06 Simethicone 80 Mg Chew Tab PO Q6H PRN Gas pain Valacyclovir HCl 500 mg 11/23/20 23:00 11/25/20 21:08 Valacyclovir 500 Mg Tab PO 500 mg BID JOSEPH Administration Witch Angelique/Glycerin 1 each 11/25/20 14:06 Witch Angelique/ Glycerin Pad TP PRN PRN Hemorrhoids/cleansing/soothing
[2020-11-26 21:16] LABS: Bilirubin,Urine NEG (Negative); Blood,Urine NEG (Negative); Color,Urine Yellow (Yellow); Mucus,Urine FEW /HPF; Protein,Urine <15 mg/dL mg/dL (Negative)
[2020-11-26] MEDS: valACYclovir 500 MG TAB PO SCH (21:41)
[2020-11-27] MEDS: oxyCODONE /ACETAMINOPHEN 5-325MG TAB PO PRN ×3 (05:41→23:06)
--- NOTE | 2020-11-27 10:53 | Discharge Summary ---
Providers - Providers Date of Admission: 11/23/20 20:39 Date of discharge: 11/28/20 Attending physician: DANNI ALAMO 11/25/20 14:06 Consult to Gauge And Weigh Machine Adjuster [CONS] Routine Reason For Exam: Primary care physician: DANNI ALAMO Hospitalization Reason for admission: induction of labor Delivery: Procedure: bilateral tubal ligation, primary low transverse Episiotomy: none Laceration: none Incision: dry, intact (steri-strips intact with no drainage or bleeding noted) Other procedures: tubal ligation complications: none Discharge diagnosis: IUP at term delivered, other (anemia) [place] baby: female Hospital course: See admission H&P; OB operative summary and PP progress notes Condition at discharge: Stable Disposition: CO-01 TO HOME OR SELFCARE - Discharge Diagnoses (1) Status post primary low transverse section Status: Acute (2) Status post tubal ligation at time of delivery, current hospitalization Status: Acute (3) Anemia Status: Acute Qualifiers: Anemia type: other cause Other causes of anemia: acute posthemorrhagic Qualified Code(s): D62 - Acute posthemorrhagic anemia Comment: Asymptomatic Plan - Discharge Medications Prescriptions: Ibuprofen [Motrin 800 MG tab] 800 mg PO Q8HR PRN 14 Days #42 tablet PRN Reason: Pain, Mild (1-3) oxyCODONE /ACETAMINOPHEN [Percocet 5/325 mg] 1 tab PO Q6HR PRN #30 tablet PRN Reason: Pain - Provider Discharge Summary Activity: routine, no sex for 6 weeks, no heavy lifting 4 weeks, no strenuous exercise Diet: other (Iron rich diet) Instructions: routine Additional instructions: [] Smoking cessation referral if applicable(refer to patient education folder for contact #) [] Refer to [facility] Booklet Call your doctor immediately for: * Fever > 100.5 * Heavy vaginal bleeding ( >1 pad per hour) * Severe persistent headache * Shortness of breath * Reddened, hot, painful area to leg or breast * Drainage or odor from incision. * Keep incision clean and dry at all times and follow doctor's instructions regarding bathing/showering * Follow up at office in 1 week for incision check - Follow up plan Follow up: DANNI ALAMO MD [Primary Care Provider] - 7 Days
[2020-11-27] MEDS: PRENATAL VIT27-FE FUMARATE-FOLIC ACID VIT TAB PO SCH (12:03)
[2020-11-27] MEDS: FERROUS SULFATE 325 MG TAB PO SCH (12:03)
[2020-11-27] MEDS: IBUPROFEN 800 MG TAB PO PRN (21:54)
[2020-11-27] MEDS: valACYclovir 500 MG TAB PO SCH (21:54)
[2020-11-28] MEDS: oxyCODONE /ACETAMINOPHEN 5-325MG TAB PO PRN (05:49)
[2020-11-28 12:43] VITALS: BP 130/82
== END 2020-11-28 14:51 | disposition home or self-care (01) | DRG 765 ==
LOC: LD 20:39 → OB 11-25 14:04
PROVIDERS: ADMIT Obstetrics & Gynecology; ATTEND Obstetrics & Gynecology
PROC: 3E033VJ Introduction of Other Hormone into Peripheral Vein, Percutaneous Approach (ICD-10-PCS; 2020-11-24)
PROC: 10D00Z0 Extraction of Products of Conception, High, Open Approach (ICD-10-PCS; principal; 2020-11-25)
PROC: 0UT70ZZ Resection of Bilateral Fallopian Tubes, Open Approach (ICD-10-PCS; 2020-11-25)
PROC: 4A033R1 Measurement of Arterial Saturation, Peripheral, Percutaneous Approach (ICD-10-PCS; 2020-11-25)
DX: O99.214 Obesity complicating childbirth (principal); D62 Acute posthemorrhagic anemia; O98.32 Other infections with a predominantly sexual mode of transmission complicating childbirth; D72.829 Elevated white blood cell count, unspecified; O32.1XX0 Maternal care for breech presentation, not applicable or unspecified; A60.09 Herpesviral infection of other urogenital tract; O77.0 Labor and delivery complicated by meconium in amniotic fluid; O40.3XX0 Polyhydramnios, third trimester, not applicable or unspecified; E66.01 Morbid (severe) obesity due to excess calories; Z3A.39 39 weeks gestation of pregnancy; Z37.0 Single live birth; Z82.49 Family history of ischemic heart disease and other diseases of the circulatory system; Z30.2 Encounter for sterilization
CPT/HCPCS: 36415; 76815; 80053; 81001; 82803; 85025; 85027; 86592; 86850; 86900; 86901; 87086; 88302; 88305; G0378; A6250; J0690; J1100; J1885; J2270; J2370; J2405; J2590; J2765; J3010; J3490; J7120